=== PATIENT | female | born 1980 | race African-American/Black ===

== ENCOUNTER 2019-03-06 05:20 | Emergency (ER) | payer MEDICARE, MEDICAID ==
[~2019-03-06] VITALS: Ht 170.2 cm; Wt 78.0 kg
[2019-03-06] MEDS: QUETIAPINE FUMARATE 100MG TABLET PO SCH ×2 (08:09→09:05)
[2019-03-06] MEDS: FLUOXETINE HCL 10 MG CAPSULE PO SCH ×2 (08:09→09:05)
[2019-03-06 08:24] LABS: BASOPHILS % 0.9 % (0.0-2.0); EOSINOPHILS % 1.8 % (0.0-5.0); HEMATOCRIT. 39.8 % (36.0-48.0); HEMOGLOBIN. 13.7 g/dL (12.0-16.0); LYMPHOCYTES % 20.5 % (20.0-50.0); MEAN CORPUSCULAR HEMOGLOBIN 29.2 pg (28.0-32.0); MEAN CORPUSCULAR VOLUME 84.9 fL (81.0-99.0); MONOCYTES % 10.9 % (2.0-8.0); NEUTROPHILS % 65.9 % (40.0-76.0); PLATELET 59 x1000/uL (130-400); RED BLOOD CELL COUNT 4.69 mill/uL (4.2-5.4); RED CELL DISTRIBUTION WIDTH 15.5 % (11.6-14.6)
[2019-03-06 08:30] LABS: CHLORIDE 109 mEq/L (98-107)
[2019-03-06 08:33] LABS: ETHANOL BLOOD < 10 mg/dL
[2019-03-06 08:45] LABS: HCG SCREEN NEGATIVE
[2019-03-06 10:11] LABS: CLARITY URINE CLOUDY (CLEAR); COLOR URINE YELLOW (YELLOW); KETONES URINE NEGATIVE (NEGATIVE); LEUKOCYTE ESTERASE URINE 1+ (NEGATIVE); NITRITE URINE NEGATIVE (NEGATIVE); OCCULT BLOOD URINE 2+ (NEGATIVE); PH URINE 6.5 (4.5-8.0); PROTEIN URINE NEGATIVE (NEGATIVE); SPECIFIC GRAVITY URINE 1.013 (1.005-1.030)
[2019-03-06 10:24] LABS: *AMPHETAMINES SCREEN URINE NEGATIVE (NEGATIVE)
[2019-03-06 10:25] LABS: *BARBITURATES SCREEN URINE NEGATIVE (NEGATIVE); *BENZODIAZEPINES SCREEN URINE NEGATIVE (NEGATIVE); METHADONE URINE SCREEN NEGATIVE (NEGATIVE); OPIATES URINE SCREEN NEGATIVE (NEGATIVE); PHENCYCLIDINE URINE SCREEN NEGATIVE (NEGATIVE)
[2019-03-06 10:26] LABS: *COCAINE SCREEN URINE NEGATIVE (NEGATIVE); CANNABINOID URINE SCREEN NEGATIVE (NEGATIVE)
[2019-03-06] MEDS ORDERED: CEPHALEXIN 250MG CAPSULE PO ONE (11:00)
[2019-03-07] MEDS: QUETIAPINE FUMARATE 100MG TABLET PO SCH (09:00)
[2019-03-07] MEDS: FLUOXETINE HCL 10 MG CAPSULE PO SCH ×2 (09:10→09:43)
[2019-03-07 09:45] VITALS: BP 113/53
== END 2019-03-07 09:49 | disposition home or self-care (01) ==
LOC: ER 05:20
DX: R45.851 Suicidal ideations (principal); N39.0 Urinary tract infection, site not specified; F32.9 Major depressive disorder, single episode, unspecified
CPT/HCPCS: 36415; 80048; 80305; 80307; 80320; 80329; 84703; 99284; G0480